=== PATIENT | male | born 1940 | race African-American/Black ===

== ENCOUNTER 2018-01-17 05:42 | Day surgery (SDC) | payer MEDICARE, BC ==
[~2018-01-17] VITALS: Ht 182.9 cm; Wt 83.9 kg
[~2018-01-17 05:42] MED LIST: ASCO-339 PO; ASPI-986 PO; ATOR20TA65 PO; CHOL200074 PO; FERR236T3 PO; GLUC-113 PO; MELA5TAB21 PO; METF500T6 PO; VITA150T PO; VITA400C19 PO
[2018-01-17] MEDS ORDERED: TROPICAMIDE 1% OPHTH DROPS 15ML RIGHTEYE ONE (06:10)
[2018-01-17] MEDS ORDERED: PHENYLEPHRINE 2.5% OPHTH 15 DROP/ML BOTTLE RIGHTEYE ONE (06:10)
[2018-01-17 06:35] LABS: BASOPHILS % 1.2 % (0.0-2.0); EOSINOPHILS % 4.7 % (0.0-5.0); HEMATOCRIT. 40.3 % (42.0-52.0); HEMOGLOBIN. 13.7 g/dL (14.0-18.0); LYMPHOCYTES % 34.5 % (20.0-50.0); MEAN CORPUSCULAR HEMOGLOBIN 30.6 pg (28.0-32.0); MEAN CORPUSCULAR VOLUME 90.2 fL (80.0-94.0); MEAN PLATELET VOLUME 7.9 fl (7.4-10.4); MONOCYTES % 11.5 % (2.0-8.0); NEUTROPHILS % 48.1 % (40.0-76.0); PLATELET 175 x1000/uL (130-400); RED BLOOD CELL COUNT 4.47 mill/uL (4.7-6.1)
[2018-01-17 06:39] LABS: CHLORIDE 105 mEq/L (98-107)
[2018-01-17] MEDS ORDERED: SODIUM CHLORIDE 0.9% 1,000 ML IV SCH (06:45)
[2018-01-17] MEDS ORDERED: METHYLPREDNISOLONE SOD SUCC 40 MG/ML VIAL ONE (07:13)
[2018-01-17] MEDS ORDERED: HYALURONATE SODIUM 14 MG/ML 0.85ML SYRINGE IO ONE (07:14)
[2018-01-17] MEDS ORDERED: LIDOCAINE HCL/PF 2% 20MG/ML 5 ML/VIAL ONE (07:15)
[2018-01-17] MEDS ORDERED: BALANCED SALT IRRIG SOLN COMB1 500ML OP ONE (07:15)
[2018-01-17] MEDS ORDERED: TOBRAMYCIN/DEXAMETHASONE OPTH DROPS 2.5ML OP ONE (07:15)
[2018-01-17] MEDS ORDERED: PROPOFOL 200MG/20ML VIAL IV ONE (07:40)
[2018-01-17] MEDS ORDERED: MIDAZOLAM HCL 2 MG/2 ML VIAL ONE ×2 (07:40→07:59)
[2018-01-17] MEDS ORDERED: LIDOCAINE HCL/PF 1% 10 MG/ML 5ML VIAL ONE (07:45)
[2018-01-17] MEDS ORDERED: SODIUM CHLORIDE 0.9% 1,000 ML IV ONE (07:58)
[2018-01-17] MEDS ORDERED: IBUPROFEN 600MG TABLET PO NR (08:00)
[2018-01-17] MEDS ORDERED: ONDANSETRON HCL 4MG/2ML VIAL IV PRN (08:00)
[2018-01-17] MEDS ORDERED: HOMATROPINE HBR 5% OPHTH 5ML ONE (08:14)
[2018-01-17] MEDS ORDERED: TETRACAINE 0.5% OPHTH DROPS 4ML ONE (14:44)
[2018-01-17] MEDS ORDERED: LIDOCAINE HCL/PF 2% 20 MG/ML 10ML VIAL ONE (14:44)
[2018-01-17] MEDS ORDERED: BALANCED SALT IRRIG SOLN 15ML ONE (14:44)
[2018-01-17] MEDS ORDERED: ACETYLCHOLINE CHLORIDE INTRAOCULAR SOLUTION 1:100 ELECTROLYTE DILUENT IO ONE (14:44)
[2018-01-17] MEDS ORDERED: BUPIVACAINE HCL/PF 0.75% (7.5MG/ML) 10ML ONE (14:44)
[2018-01-17] MEDS ORDERED: PHENYLEPHRINE HCL 2.5% OPHTH DROPS 2ML ONE (14:44)
[2018-01-17] MEDS ORDERED: TROPICAMIDE 1% OPHTH DROPS 15ML ONE (14:44)
== END 2018-01-17 10:40 | disposition home or self-care (01) ==
LOC: OR 05:42
PROVIDERS: ATTEND Ophthalmology
DX: H25.011 Cortical age-related cataract, right eye (principal); I10 Essential (primary) hypertension; J45.909 Unspecified asthma, uncomplicated; E11.9 Type 2 diabetes mellitus without complications; M19.90 Unspecified osteoarthritis, unspecified site; D64.9 Anemia, unspecified; J44.9 Chronic obstructive pulmonary disease, unspecified; Z98.890 Other specified postprocedural states; Z79.899 Other long term (current) drug therapy
CPT/HCPCS: 36415; 66984; 80048; 82962; 85025; 93005; J2250; J3490; J7030; V2632; J2704; J2920

== ENCOUNTER → 2023-09-27 | Day surgery (SDC) | payer MEDICARE ==
[~2023-09-27] VITALS: Ht 182.9 cm; Wt 78.0 kg
[~2023-09-27] MED LIST changes: +ALPH100C PO; +BALANCED SALT IRRIG SOLN 15ML ONE; +BALANCED SALT IRRIG SOLN COMB1 500ML OP NR; +ESOM20CA PO; +GENTAMICIN 0.3% OPHTH DROPS 5ML ONE; +HYALURONATE SODIUM 10 MG/ML 0.55ML SYRINGE IO ONE; +IBUP-2741 PO; +LIDOCAINE HCL/PF 1% 10 MG/ML 5ML VIAL ONE; +MAGN400T39 PO; +MELA10TA3 PO; +METF-414 PO; +METF-416 PO; -METF500T6 PO; +MULT-622 PO; +PHENYLEPHRINE 2.5% OPHTH 15 DROP/ML BOTTLE LEFTEYE SCH; +PROPOFOL 200MG/20ML VIAL IV ONE; +TRIAMCINOLONE ACETONIDE 40MG/ML 1ML VIAL ONE; +TROPICAMIDE 1% OPHTH DROPS 15ML LEFTEYE SCH; +UBID100C12 PO; +VITA-358 PO; -VITA400C19 PO; +ZINC100T2 PO
[2023-09-27] MEDS: SODIUM CHLORIDE 0.9% 1,000 ML IV SCH (10:42)
== END | disposition home or self-care (01) ==
LOC: OR 09:52
PROVIDERS: ATTEND Ophthalmology
DX: E11.36 Type 2 diabetes mellitus with diabetic cataract (principal); H25.89 Other age-related cataract; K21.9 Gastro-esophageal reflux disease without esophagitis; E11.42 Type 2 diabetes mellitus with diabetic polyneuropathy; I10 Essential (primary) hypertension; E78.5 Hyperlipidemia, unspecified; N40.1 Benign prostatic hyperplasia with lower urinary tract symptoms; Z79.84 Long term (current) use of oral hypoglycemic drugs; Z79.899 Other long term (current) drug therapy; Z98.890 Other specified postprocedural states
CPT/HCPCS: 82962; 66984; J3490 ×3; J2704; J3301; A4217; Z7610 ×19; V2632